=== PATIENT | female | born 1980 | race Two or more races ===

== ENCOUNTER 2021-12-01 11:16 | Emergency (ER) | payer OTHER, SELFPAY ==
[2021-12-01 11:49] VITALS: BP 157/90; PULSE 80; TEMP 37; O2SAT 100; BMI 25.7
[2021-12-01 12:17] LABS: COVID-19 Test Negative (Negative)
--- NOTE | 2021-12-01 12:35 | ED.URI ---
HPI - URI/Sore Throat General Chief Complaint: Upper Respiratory Symptoms <Rukhsana Earl NP - Last Filed: 12/01/21 13:21> Stated Complaint: Sinus infection <Rukhsana Earl NP - Last Filed: 12/01/21 13:21> Time Seen by Provider: 12/01/21 12:15 <Rukhsana Earl NP - Last Filed: 12/01/21 13:21> Source: screen cutter and trimmer <Rukhsana Earl NP - Last Filed: 12/01/21 13:21> Mode of arrival: ambulatory <HENOK Hallman Last Filed: 12/01/21 13:21> Limitations: language barrier <Rukhsana Earl NP - Last Filed: 12/01/21 13:21> History of Present Illness HPI Narrative: 41 Year old female with a history of asthma, hypertension here with complaints of sinus pressure, sinus pain, cough nasal congestion for 2 weeks. No fevers, chills, headache, neck pain/stiffnes, diff breathing or chest pain. Received moderna vaccine x2 for COVID. <HENOK Hallman Last Filed: 12/01/21 13:21> Related Data Home Medications: Previous Rx's Medication Instructions Recorded amoxicillin 875 mg-potassium 1 tab PO BID #14 tab 12/01/21 clavulanate 125 mg tablet (Augmentin) fluticasone propionate 50 2 spray INTRANASAL DAILY #16 g 12/01/21 mcg/actuation nasal spray,suspension <HENOK Hallman Last Filed: 12/01/21 13:21> Allergies/Adverse Reactions: Allergies Allergy/AdvReac Type Severity Reaction Status Date / Time cyclobenzaprine Allergy Unknown ITCHING Unverified 07/26/20 18:40 [From FLEXERIL] <HENOK Hallman Last Filed: 12/01/21 13:21> Review of Systems Review of Systems: Yes all other systems are reviewed and are negative <HENOK Hallman Last Filed: 12/01/21 13:21> Constitutional: Constitutional: Reports no additional constitutional complaints, Denies body ache(s), Denies chills, Denies fever(s), Denies headache(s) and Denies weakness <Rukhsana Earl NP - Last Filed: 12/01/21 13:21> Eyes: Eyes: Reports no additional eye complaints and Denies change in vision <Rukhsana Earl OBJECT ORIENTED PROGRAMMER - Last Filed: 12/01/21 13:21> ENT: Reports system reviewed and no additional complaints, except as documented, Denies dizziness, Denies headache(s), Reports nasal congestion, Denies nasal discharge, Denies neck pain, Reports sinus pain and Reports sinus pressure <Rukhsana Earl OBJECT ORIENTED PROGRAMMER - Last Filed: 12/01/21 13:21> Cardiovascular: Cardiovascular: Reports no additional cardiovascular complaints, Denies chest pain, Denies leg edema and Denies dyspnea <Rukhsana Earl OBJECT ORIENTED PROGRAMMER - Last Filed: 12/01/21 13:21> Respiratory: Respiratory: Reports no additional respiratory complaints, Reports cough and Denies dyspnea <Rukhsana Earl OBJECT ORIENTED PROGRAMMER - Last Filed: 12/01/21 13:21> Gastrointestinal: Gastrointestinal: Reports no additional gastrointestinal complaints, Denies abdominal pain, Denies diarrhea, Denies nausea and Denies vomiting <Rukhsana Earl OBJECT ORIENTED PROGRAMMER - Last Filed: 12/01/21 13:21> Genitourinary: Genitourinary: Reports no additional female genitourinary complaints and Denies urinary incontinence <Rukhsana Earl OBJECT ORIENTED PROGRAMMER - Last Filed: 12/01/21 13:21> Musculoskeletal: Musculoskeletal: Reports no additional musculoskeletal complaints, Denies back pain, Denies arthralgias, Denies joint swelling, Denies neck pain, Denies numbness and Denies tingling <Rukhsana Earl OBJECT ORIENTED PROGRAMMER - Last Filed: 12/01/21 13:21> Integumentary/Breasts: Skin/Breast: Reports system reviewed and no additional complaints, except as docu and Denies rash <Rukhsana Earl OBJECT ORIENTED PROGRAMMER - Last Filed: 12/01/21 13:21> Neurologic: Denies Abnormal speech present, Denies dizziness, Denies headache(s), Denies numbness, Denies tingling and Denies weakness <Rukhsana Earl OBJECT ORIENTED PROGRAMMER - Last Filed: 12/01/21 13:21> [facility] Past Medical History Attestation statement: The following information was validated with the patient. <Rukhsana Earl NP - Last Filed: 12/01/21 13:21> Source: old records reviewed and nursing notes reviewed <Rukhsana Earl NP - Last Filed: 12/01/21 13:21> Medical History: Medical History Asthma Hypertension <Rukhsana Earl NP - Last Filed: 12/01/21 13:21> Social History Social History: Social History Advance Directives: No Advance Directives Information Provided: No Patient : No <Rukhsana Earl NP - Last Filed: 12/01/21 13:21> Physical Exam Vital Signs: Vital Signs: Last Vital Signs Temp 98.6 F 12/01/21 11:49 Pulse 80 12/01/21 11:49 BP 157/90 H 12/01/21 11:49 Pulse Ox 100 12/01/21 11:49 BMI result Body Mass Index 25.7 <Rukhsana Earl NP - Last Filed: 12/01/21 13:21> Vital Signs: Last Vital Signs Temp 98.6 F 12/01/21 11:49 Pulse 80 12/01/21 11:49 BP 157/90 H 12/01/21 11:49 Pulse Ox 100 12/01/21 11:49 BMI result Body Mass Index 25.7 <Phu Orosco MD - Last Filed: 12/01/21 13:35> Const: General: cooperative, healthy appearing, comfortable and no acute distress <Rukhsana Earl NP - Last Filed: 12/01/21 13:21> Orientation/consciousness: patient oriented x3 <Rukhsana Earl NP - Last Filed: 12/01/21 13:21> Limitations: no limitations <Rukhsana Earl NP - Last Filed: 12/01/21 13:21> HENMT: Head: Yes normal to inspection <Rukhsana Earl NP - Last Filed: 12/01/21 13:21> Ears: hearing grossly normal bilaterally and TM's normal bilaterally <Rukhsana Earl NP - Last Filed: 12/01/21 13:21> General nose exam: Normal external nose present <Rukhsana Earl NP - Last Filed: 12/01/21 13:21> Face and sinus: Yes normal facial exam, Yes Facial tenderness on exam of face and sinuses (bilateral maxillar/frontal) and Yes other (bilateral nasal turbinate erythema ) <Rukhsana Earl OBJECT ORIENTED PROGRAMMER - Last Filed: 12/01/21 13:21> Mouth: Normal oral and palatal mucosa present <Rukhsana Earl NP - Last Filed: 12/01/21 13:21> Throat: Yes posterior oropharynx normal, Yes tonsils normal and Yes uvula midline <Rukhsana Earl NP - Last Filed: 12/01/21 13:21> Eyes: General: appearance normal, both eyes and all related structures <Rukhsana Earl NP - Last Filed: 12/01/21 13:21> Pupils: Equal, round and reactive pupils present <Rukhsana Earl OBJECT ORIENTED PROGRAMMER - Last Filed: 12/01/21 13:21> Neck: Neck: Yes normal visual inspection, Yes full ROM, Yes no lymphadenopathy and Yes no meningeal signs <Rukhsana Earl NP - Last Filed: 12/01/21 13:21> Chest: Chest palpation & inspection: normal inspection of the chest <Rukhsana Earl NP - Last Filed: 12/01/21 13:21> Resp: Effort & Inspection: normal respiratory effort <Rukhsana Earl NP - Last Filed: 12/01/21 13:21> Auscultation: clear to auscultation bilaterally <Rukhsana Earl NP - Last Filed: 12/01/21 13:21> Cardio: Rate: regular rate <Rukhsana Earl NP - Last Filed: 12/01/21 13:21> Rhythm: regular rhythm <Rukhsana Earl NP - Last Filed: 12/01/21 13:21> Peripheral pulses: Peripheral pulses 2+ throughout <Rukhsana Earl NP - Last Filed: 12/01/21 13:21> GI: Inspection: Yes normal to inspection <Rukhsana Earl NP - Last Filed: 12/01/21 13:21> Palpation (GI): Soft to palpation and nontender <Rukhsana Earl NP - Last Filed: 12/01/21 13:21> Auscultation: normal bowel sounds <Rukhsana Earl NP - Last Filed: 12/01/21 13:21> Back/Spine/Pelvis: Thoracic/Lumbar Spine: thoracic and lumbar spine normal to inspection <Rukhsana Earl NP - Last Filed: 12/01/21 13:21> Skin: General skin exam: no rashes or lesions noted <Rukhsana Earl NP - Last Filed: 12/01/21 13:21> Neuro: General: patient oriented x3, no meningeal signs, no focal motor deficits and normal sensation to monofilament <Rukhsana Earl NP - Last Filed: 12/01/21 13:21> Cranial nerves: Yes Equal, round and reactive pupils present <Rukhsana Earl NP - Last Filed: 12/01/21 13:21> Cognition (Neuro): normal cognition <Rukhsana Earl NP - Last Filed: 12/01/21 13:21> Speech: No Abnormal speech present <Rukhsana Earl NP - Last Filed: 12/01/21 13:21> Gait exam (Neuro): Normal gait present <Rukhsana Earl NP - Last Filed: 12/01/21 13:21> Motor exam (neuro): 5/5 motor strength present throughout <Rukhsana Earl NP - Last Filed: 12/01/21 13:21> Extrem: General: Yes normal to inspection <Rukhsana Earl NP - Last Filed: 12/01/21 13:21> Course Course Course Narrative: 41yo female here with complaints of sinus pressure/sinus pain, nasal congestion, cough x 2 weeks. Rapid COVID negative. Exam is consistent with sinusitis. Will treat with course of antibiotics. Reviewed worrisome signs and symptoms of when to return to the emergency department. Comfortable discharge home. <Rukhsana Earl NP - Last Filed: 12/01/21 13:21> MDM - URI/Sore Throat Medical Records Attestation: I reviewed the patient's medical records. <Rukhsana Earl NP - Last Filed: 12/01/21 13:21> Lab Data Attestation: I reviewed the patient's lab results. <Rukhsana Earl NP - Last Filed: 12/01/21 13:21> Labs: Lab Results 12/01/21 Range/Units 11:59 COVID-19 (NICHOLAS) Negative (Negative) COVID-19 Clin Com See Note <Rukhsana Earl NP - Last Filed: 12/01/21 13:21> Lab Results 12/01/21 Range/Units 11:59 COVID-19 (NICHOLAS) Negative (Negative) COVID-19 Clin Com See Note <Phu Orosco MD - Last Filed: 12/01/21 13:35> Discharge Plan Discharge Clinical Impression: Sinusitis <Rukhsana Earl NP - Last Filed: 12/01/21 13:21> Patient Disposition: Home, Self-Care <Rukhsana Earl NP - Last Filed: 12/01/21 13:21> Instructions: Sinusitis (ED) <Rukhsana Earl NP - Last Filed: 12/01/21 13:21> Additional Instructions: Continue motrin or tylenol for pain as needed <Rukhsana Earl NP - Last Filed: 12/01/21 13:21> Prescriptions: New amoxicillin-pot clavulanate [Augmentin] 875-125 mg tablet 1 tab PO BID Qty: 14 RF: 0 fluticasone propionate 50 mcg/actuation spray,suspension 2 spray intranasal DAILY Qty: 16 RF: 0 <Rukhsana Earl NP - Last Filed: 12/01/21 13:21> Referrals: Physician,Unknown J [Primary Care Provider] - 2 days <Rukhsana Earl NP - Last Filed: 12/01/21 13:21> Interventions: ED Discharge Assessment Last Done: 12/01/21 13:15 <Rukhsana Earl NP - Last Filed: 12/01/21 13:21> Discharge Date/Time: 12/01/21 13:17 <Rukhsana Earl NP - Last Filed: 12/01/21 13:21> Print Language: Serbian <Rukhsana Earl NP - Last Filed: 12/01/21 13:21>
== END 2021-12-01 13:17 | disposition home or self-care (01) ==
LOC: HO.ED 12:54
PROVIDERS: Emergency Provider Emergency Medicine
DX: J32.9 Chronic sinusitis, unspecified (principal); R05.9 Cough, unspecified; Z20.822 Contact with and (suspected) exposure to COVID-19
CPT/HCPCS: 87635; 99283

== ENCOUNTER 2022-03-06 14:16 | Outpatient (REF) | payer OTHER, SELFPAY ==
[2022-03-06 15:12] LABS: COVID-19 Test Negative (Negative); IDNOW Serial# 16C4AD1C
== END 2022-03-06 14:17 | disposition home or self-care (01) ==
LOC: HO.LAB 14:16
PROVIDERS: Visit Provider Internal Medicine
DX: Z20.822 Contact with and (suspected) exposure to COVID-19 (principal)
CPT/HCPCS: 87635; C9803

== ENCOUNTER 2022-03-23 10:09 | Emergency (ER) | payer OTHER, SELFPAY ==
--- NOTE | ~2022-03-23 | CT_ITS ---
EXAMINATION: CT ABDOMEN AND PELVIS WITHOUT CONTRAST CLINICAL INFORMATION: GI bleed. COMPARISON: None TECHNIQUE: Multidetector volumetric imaging was performed from the superior aspect of the liver through the pubic symphysis. Sagittal and coronal reformatted images were obtained on the technologist's workstation. This CT examination was performed using dose optimization techniques as appropriate, variously including the following: *Automated exposure control *Adjustment of mA and/or kV according to patient size (this includes techniques or standardized protocols for targeted exams where dose is matched to indication/reason for exam; i.e. extremities or head) *Use of iterative reconstruction technique DLP: 502 mGy-cm FINDINGS: LUNG BASES: The heart size is normal. Minimal bibasilar atelectasis seen. LIVER, GALLBLADDER, AND BILIARY TREE: The liver is normal in size, shape, and attenuation. No focal hepatic lesion or biliary ductal dilatation is present. There is a 7 mm calcification in the left hepatic lobe. The gallbladder has been surgically removed. PANCREAS: Unremarkable. SPLEEN: Unremarkable. ADRENAL GLANDS: Unremarkable. KIDNEYS AND URETERS: The kidneys are normal in size, shape, and attenuation. No hydronephrosis, hydroureter, or calculi seen. No perinephric stranding. BLADDER: Unremarkable. GASTROINTESTINAL TRACT: There is scattered stool and gas seen throughout the colon without any significant distention or mural thickening. Some scattered hypodensity is seen in the right colon which could be secondary to iodine tablets. No oral contrast was administered. The small bowel loops are normal caliber. Appendix is not visualized. ABDOMINAL WALL: There is a small umbilical hernia containing fat. LYMPH NODES: There are numerous small mesenteric lymph nodes seen on coronal image 30/5. The largest lymph nodes measure 7 mm and less in long axis. Also visualized are small retroperitoneal para-aortic lymph nodes and small bilateral inguinal lymph nodes. These are all nonspecific. VASCULAR: Unremarkable. PELVIC VISCERA: The uterus is anteverted and appears lumpy-bumpy suspicious for fibroid disease. There is no adnexal mass or free fluid. OSSEOUS STRUCTURES: Degenerative disc changes with vacuum disc phenomena and spondylosis L5-S1 disc level. CT/CT abdomen pelvis wo con IMPRESSION: No acute intra-abdominal process seen. Mild constipation. Slightly enlarged, bulky and lobulated uterus could be secondary to fibroid disease. Nonspecific lymph nodes, as described above, measuring 7 mm and less in the small bowel mesentery. Fleischner guidelines were followed.
[2022-03-23 10:32] VITALS: BP 149/80; PULSE 72; RESP 18; TEMP 36.1; O2SAT 98; BMI 25.7
[2022-03-23 12:09] LABS: MANUAL DIFF FLAG NO
[2022-03-23 12:10] LABS: Basophils Percent Auto 0.5 % (0-2); Eosinophils Absolute Auto 0.1 X10*3/uL (0.0-0.4); Eosinophils Percent Auto 1.8 % (0-4); Hematocrit 34.1 % (37.0-47.0); Hemoglobin 11.4 g/dl (12.0-16.0); Imm Gran Abs Auto 0.01 X10*3/uL (0.00-0.03); Imm Gran Pct Auto 0.2 % (0.0-0.4); Lymphocytes Absolute Auto 1.6 X10*3/uL (1.2-4.9); Mean Corpuscular HGB Conc 33.4 g/dl (31.0-35.0); Mean Corpuscular Hemoglobin 30.4 pg (27.0-33.0); Mean Corpuscular Volume 90.9 fL (80.0-98.0); Mean Platelet Volume 8.7 fL (9.4-12.3); Monocytes Absolute Auto 0.4 X10*3/uL (0.1-1.2); Monocytes Percent Auto 6.6 % (2-11); Neutrophils Absolute Auto 4.3 x10*3/uL (2.0-8.3); Neutrophils Percent Auto 65.9 % (45-73); Platelet Count 254 X10*3/uL (160-400); Red Blood Count 3.75 X10*6/uL (4.20-5.50); Red Cell Distribution Width 12.5 % (11.0-16.0); White Blood Count 6.5 X10*3/uL (4.8-10.8)
[2022-03-23 12:15] LABS: Prothrombin Time 10.9 SEC (9.9-13.0)
[2022-03-23 12:35] LABS: Alanine Aminotransferase 33 U/L (0-31); Albumin Level 3.9 g/dL (3.5-5.0); Alkaline Phosphatase 75 U/L (39-117); Anion Gap 10 (12-20); Aspartate Amino Transferase 23 U/L (5-31); Bilirubin Direct < 0.2 mg/dL (0.0-0.5); Bilirubin Total 0.3 mg/dL (0.0-1.0); Blood Urea Nitrogen 8 mg/dL (9-16); Calcium 8.9 mg/dL (8.4-10.2); Carbon Dioxide 25 mmol/L (22-29); Chloride 109 mmol/L (96-108); Creatinine Clr Calc Pharmacy 98.8; Estimated Glomerular Filt Rate > 60; Glucose Random 92 mg/dL (60-115); Lipase 36 U/L (8-78); Potassium 4.1 mmol/L (3.3-5.1); Sodium 140 mmol/L (135-145); Total Protein 7.2 g/dL (6.5-8.0)
[2022-03-23 14:45] VITALS: BP 139/88; PULSE 73; RESP 18; O2SAT 100
[2022-03-23 15:08] LABS: HCG Quantitative < 2 mIU/mL
[2022-03-23 15:56] LABS: OBS Int Ctl Valid YES; OBS1 POSITIVE (NEGATIVE)
--- NOTE | 2022-03-23 16:57 | ED.GIBLEED ---
HPI - GI Bleed General Chief complaint: GI Bleed Stated complaint: blood in stools Time Seen by Provider: 03/23/22 14:47 Source: patient and family Mode of arrival: ambulatory Limitations: language barrier ( Mozambican-speaking) History of Present Illness HPI Narrative: 41-year-old female with a past medical history of asthma and hypertension and gastritis presenting to the ED with complaints of 4 episodes of blood streak stool/gross hematochezia and blood on toilet paper since last night with lower abdominal cramping. She reports she has never had this in the past. She denies any headaches, dizziness, change in vision, nausea / vomiting, back or bloody emesis, chest pain or shortness of breath, dyspnea exertion, orthopnea, palpitations, paresthesias, radiation of the abdominal pain, recent falls or trauma, recent rectal intercourse, dysuria, hematuria or any other symptoms complaints or concerns at this time. MD complaint: blood on toilet paper, blood streaked stool and gross hematochezia Onset (ago): day(s) ( Since last night) Pain Consistency: intermittent Severity: mild Relieving factors: none Exacerbating factors: bowel movement Associated symptoms: abdominal pain Treatments Prior to Arrival: none Related Data Previous Rx's Medication Instructions Recorded amoxicillin 875 mg-potassium 1 tab PO BID #14 tab 12/01/21 clavulanate 125 mg tablet (Augmentin) fluticasone propionate 50 2 spray INTRANASAL DAILY #16 g 12/01/21 mcg/actuation nasal spray,suspension docusate sodium 100 mg capsule 100 mg PO BID PRN #14 cap 03/23/22 (Colace) polyethylene glycol 3350 17 17 g PO DAILY #238 g 03/23/22 gram/dose oral powder (Miralax) Allergies Allergy/AdvReac Type Severity Reaction Status Date / Time cyclobenzaprine Allergy Unknown ITCHING Unverified 07/26/20 18:40 [From FLEXERIL] Review of Systems Review of Systems: Constitutional : No Fever, No Chills, No Night Sweats, No Fatigue, No Malaise Cardiovascular : No Chest Pain, No SOB Respiratory : No Cough, No Sputum, No Wheezing, No Dyspnea Gastrointestinal : No Nausea, No Vomiting, No Diarrhea, + abdominal Pain, + Hematochezia, No Melena Genitourinary : No irregular bleeding, No Dysuria, No Urinary Frequency, No Hematuria,No Urinary Incontinence, No Urgency, No Flank Pain Musculoskeletal : No joint pain, No Myalgias, No Joint Swelling Skin : No Skin Lesions, No rash Neuro : No Weakness, No Numbness, No Paresthesias, No Loss of Consciousness, No Dizziness, No Headache Heme/Lymph: No Lymphadenopathy Endocrine : No Temperature Intolerance Yes all other systems are reviewed and are negative [facility] Past Medical History Attestation statement: The following information was validated with the patient. Medical History Asthma Hypertension Social History Social History Advance Directives: No Advance Directives Information Provided: No Physical Exam Vital Signs: Vital Signs: Last Vital Signs Temp 97 F 03/23/22 10:32 Pulse 73 03/23/22 14:45 Resp 18 03/23/22 14:45 BP 139/88 03/23/22 14:45 Pulse Ox 100 03/23/22 14:45 BMI result Body Mass Index 25.7 vital signs have been reviewed as normal and appeared to be correct. Blood pressure 149/80. Heart rate normal. Respiration rate normal. Temperature normal. Oxygen saturation normal. Appearance: Alert. Oriented X3. No acute distress. Head: Normal external exam. Normocephalic. Eyes: PERRLA. EOMI. Conjunctiva and sclera normal. Eyelids normal. ENT: Pharynx normal. Uvula midline. Moist mucous membranes. No trismus noted. No drooling noted. No muffled voice noted. Neck: Normal inspection. Neck supple. FROM. No adenopathy. No meningeal signs. CVS: Normal heart rate and rhythm. Heart sound normal. No murmurs noted. Pulses normal throughout. Respiratory: No respiratory distress. Painless inspiration. Breath sounds normal. No wheezes/rales/rhonchi noted. Chest nontender. No accessory muscle usage noted or decreased air movement noted. Abdomen: Soft and mild tenderness palpation to suprapubic/ lower abdomen. Nondistended. No guarding. No rigidity. Bowel sounds normal in all 4 quadrants. No distention noted. No organomegaly noted. No visible injury noted. No rebound tenderness. Negative Rovsing sign. Negative obturator's sign. Negative psoas sign. Negative Figueredo sign. Back: No CVA tenderness. Full range of motion noted. Skin: Skin warm and dry. Normal skin color. Normal skin turgor. No rashes/lesions/lacerations noted. Extremities: Extremities exhibit normal range of motion. Extremities nontender. Neuro: Oriented X 3. No motor deficit. No sensory deficit. Reflexes normal. Normal steady gait. CN's II-XII intact bilaterally? Course Course Course Narrative: 15:15pm - 41-year-old female with a past medical history of asthma and hypertension and gastritis presenting to the ED with complaints of 4 episodes of blood streak stool/gross hematochezia and blood on toilet paper since last night with lower abdominal cramping. labs obtain an H&H at 11.4/34.1. chloride 109. Anion gap 10. BUN 8. ALT 33. Otherwise all other labs are within normal limits. Stool occult positive for blood. Although on exam she is not actively bleeding rectally. Plan: Will obtain a CT scan abdomen pelvis with IV contrast and re-evaluate. Reevaluation(s) Reevaluation #1: - patient stool occult was positive although she is not actively bleeding on my exam. CT scan abdomen pelvis revealed chronic changes such as fibroids in the uterus and constipation otherwise no other acute processes. Therefore explained to the patient that her vital signs are stable her H&H is stable especially if she started bleeding last night there is no additional labs or imaging indicated at this time. Therefore she can follow-up as an outpatient for possible endoscope/colonoscopy with GI if they believe it is indicated and to follow-up with her PCP/ OBGYN for her fibroid disease and to return if any new or worsening symptoms. Patient understands agrees with this plan. Time: 18:38 [facility] - GI Bleed Medical Records Attestation: I reviewed the patient's medical records. Lab Data Attestation: I reviewed the patient's lab results. Result diagrams: 03/23/22 12:05 03/23/22 12:05 Labs: Lab Results 03/23/22 03/23/22 03/23/22 Range/Units 12:05 12:05 12:05 WBC 6.5 (4.8-10.8) X10*3/uL RBC 3.75 L (4.20-5.50) X10*6/uL Hgb 11.4 L (12.0-16.0) g/dl Hct 34.1 L (37.0-47.0) % MCV 90.9 (80.0-98.0) fL MCH 30.4 (27.0-33.0) pg MCHC 33.4 (31.0-35.0) g/dl RDW 12.5 (11.0-16.0) % Plt Count 254 (160-400) X10*3/uL MPV 8.7 L (9.4-12.3) fL Immature Gran % (Auto) 0.2 (0.0-0.4) % Neut % (Auto) 65.9 (45-73) % Lymph % (Auto) 25.0 (20-40) % [place] % (Auto) 6.6 (2-11) % Eos % (Auto) 1.8 (0-4) % Baso % (Auto) 0.5 (0-2) % Lymph # (Auto) 1.6 (1.2-4.9) X10*3/uL [place] # (Auto) 0.4 (0.1-1.2) X10*3/uL Eos # (Auto) 0.1 (0.0-0.4) X10*3/uL Baso # (Auto) 0.0 (0.0-0.2) X10*3/uL Abs Immat Gran (auto) 0.01 (0.00-0.03) X10*3/uL Absolute Neuts (auto) 4.3 (2.0-8.3) x10*3/uL Absolute Nucleated RBC 0.000 (0.0-0.012) X10*3/uL Nucleated RBC % (auto) 0.0 (0.0-0.2) /100WBC PT 10.9 (9.9-13.0) SEC INR 1.0 (0.9-1.1) Sodium 140 (135-145) mmol/L Potassium 4.1 (3.3-5.1) mmol/L Chloride 109 H (96-108) mmol/L Carbon Dioxide 25 (22-29) mmol/L Anion Gap 10 L (12-20) BUN 8 L (9-16) mg/dL Creatinine 0.69 (0.5-1.4) mg/dL Estim Creat Clear Calc 98.8 Estimated GFR > 60 Random Glucose 92 (60-115) mg/dL Calcium 8.9 (8.4-10.2) mg/dL Total Bilirubin 0.3 (0.0-1.0) mg/dL Direct Bilirubin < 0.2 (0.0-0.5) mg/dL AST 23 (5-31) U/L ALT 33 H (0-31) U/L Alkaline Phosphatase 75 (39-117) U/L Total Protein 7.2 (6.5-8.0) g/dL Albumin 3.9 (3.5-5.0) g/dL Lipase 36 (8-78) U/L Beta HCG, Quant < 2 mIU/mL Stool Occult Blood (NEGATIVE) 03/23/22 Range/Units 15:42 WBC (4.8-10.8) X10*3/uL RBC (4.20-5.50) X10*6/uL Hgb (12.0-16.0) g/dl Hct (37.0-47.0) % MCV (80.0-98.0) fL MCH (27.0-33.0) pg MCHC (31.0-35.0) g/dl RDW (11.0-16.0) % Plt Count (160-400) X10*3/uL MPV (9.4-12.3) fL Immature Gran % (Auto) (0.0-0.4) % Neut % (Auto) (45-73) % Lymph % (Auto) (20-40) % [place] % (Auto) (2-11) % Eos % (Auto) (0-4) % Baso % (Auto) (0-2) % Lymph # (Auto) (1.2-4.9) X10*3/uL [place] # (Auto) (0.1-1.2) X10*3/uL Eos # (Auto) (0.0-0.4) X10*3/uL Baso # (Auto) (0.0-0.2) X10*3/uL Abs Immat Gran (auto) (0.00-0.03) X10*3/uL Absolute Neuts (auto) (2.0-8.3) x10*3/uL Absolute Nucleated RBC (0.0-0.012) X10*3/uL Nucleated RBC % (auto) (0.0-0.2) /100WBC PT (9.9-13.0) SEC INR (0.9-1.1) Sodium (135-145) mmol/L Potassium (3.3-5.1) mmol/L Chloride (96-108) mmol/L Carbon Dioxide (22-29) mmol/L Anion Gap (12-20) BUN (9-16) mg/dL Creatinine (0.5-1.4) mg/dL Estim Creat Clear Calc Estimated GFR Random Glucose (60-115) mg/dL Calcium (8.4-10.2) mg/dL Total Bilirubin (0.0-1.0) mg/dL Direct Bilirubin (0.0-0.5) mg/dL AST (5-31) U/L ALT (0-31) U/L Alkaline Phosphatase (39-117) U/L Total Protein (6.5-8.0) g/dL Albumin (3.5-5.0) g/dL Lipase (8-78) U/L Beta HCG, Quant mIU/mL Stool Occult Blood POSITIVE (NEGATIVE) Imaging Data CT scan abdomen pelvis without IV contrast: Attestation: I personally reviewed and interpreted this imaging study as follows: Radiologist's impression: FINDINGS: LUNG BASES: The heart size is normal. Minimal bibasilar atelectasis seen.? LIVER, GALLBLADDER, AND BILIARY TREE: The liver is normal in size, shape, and attenuation. No focal hepatic lesion or biliary ductal dilatation is present. There is a 7 mm calcification in the left hepatic lobe. The gallbladder has been surgically removed.? PANCREAS: Unremarkable.? SPLEEN: Unremarkable.? ADRENAL GLANDS: Unremarkable.? KIDNEYS AND URETERS: The kidneys are normal in size, shape, and attenuation. No hydronephrosis, hydroureter, or calculi seen. No perinephric stranding.? BLADDER: Unremarkable.? GASTROINTESTINAL TRACT: There is scattered stool and gas seen throughout the colon without any significant distention or mural thickening. Some scattered hypodensity is seen in the right colon which could be secondary to iodine tablets. No oral contrast was administered. The small bowel loops are normal caliber. Appendix is not visualized.? ABDOMINAL WALL: There is a small umbilical hernia containing fat.? LYMPH NODES: There are numerous small mesenteric lymph nodes seen on coronal image 30/5. The largest lymph nodes measure 7 mm and less in long axis. Also visualized are small retroperitoneal para-aortic lymph nodes and small bilateral inguinal lymph nodes. These are all nonspecific. VASCULAR: Unremarkable. PELVIC VISCERA: The uterus is anteverted and appears lumpy-bumpy suspicious for fibroid disease. There is no adnexal mass or free fluid. ? OSSEOUS STRUCTURES: Degenerative disc changes with vacuum disc phenomena and spondylosis L5-S1 disc level.? CT/CT abdomen pelvis wo con IMPRESSION: No acute intra-abdominal process seen. ? Mild constipation. ? Slightly enlarged, bulky and lobulated uterus could be secondary to fibroid disease. ? Nonspecific lymph nodes, as described above, measuring 7 mm and less in the small bowel mesentery. ? Fleischner guidelines were followed. Discharge Plan Discharge Clinical Impression: Fecal occult blood test positive, Abdominal cramping, Constipation, Fibroid, uterine Patient Disposition: Home, Self-Care Instructions: Constipation (DC), Rectal Bleeding (ED), Abdominal Pain (ED) Prescriptions: New docusate sodium [Colace] 100 mg capsule 100 mg PO BID PRN (Reason: Constipation) Qty: 14 0RF polyethylene glycol 3350 [Miralax] 17 gram/dose powder 17 g PO DAILY Qty: 238 0RF No Action amoxicillin-pot clavulanate [Augmentin] 875-125 mg tablet 1 tab PO BID Qty: 14 0RF fluticasone propionate 50 mcg/actuation spray,suspension 2 spray intranasal DAILY Qty: 16 0RF Rx Instructions: administer into each nostril Referrals: Suresh Maxwell PA [Primary Care Provider] - 2 days Isidoro Green [Physician] - 1 week ( call to make a follow-up appointment within a week) Print Language: Mozambican
== END 2022-03-23 19:02 | disposition home or self-care (01) ==
PROVIDERS: Physician Assistant Medical; Emergency Provider Emergency Medicine; PCP Physician Assistant
DX: R19.5 Other fecal abnormalities (principal); R10.9 Unspecified abdominal pain; K59.00 Constipation, unspecified; D25.9 Leiomyoma of uterus, unspecified; I10 Essential (primary) hypertension; J45.909 Unspecified asthma, uncomplicated
CPT/HCPCS: 36415; 74176; 80048; 80076; 82272; 83690; 84702; 85025; 85610; 99283; 99284

== ENCOUNTER → 2022-04-15 13:03 | Outpatient (BNVA) | payer OTHER, SELFPAY | PROVIDERS: PCP Physician Assistant; Visit Provider Physician Assistant | DX: K62.5 Hemorrhage of anus and rectum (principal); K52.9 Noninfective gastroenteritis and colitis, unspecified; J45.909 Unspecified asthma, uncomplicated | CPT/HCPCS: 99202 ==

== ENCOUNTER 2022-04-21 09:07 | Outpatient (REF) | payer OTHER, SELFPAY ==
[2022-04-21 10:45] LABS: C Reactive Protein 0.56 mg/dL (< or = 0.50)
[2022-04-21 10:57] LABS: Erythrocyte Sedimentation Rate 5 MM/HR (0-20)
[2022-04-21 11:09] LABS: Thyroid Stimulating Hormone 0.82 uIU/mL (0.32-4.0)
[2022-04-25 15:33] LABS: Endomysial IgA Antibody Negative (Negative)
[2022-04-26 14:06] LABS: Transglutaminase IgA <1.0 U/mL
== END 2022-04-21 09:08 | disposition home or self-care (01) ==
LOC: HO.LAB 09:07
PROVIDERS: Visit Provider Physician Assistant
DX: K52.9 Noninfective gastroenteritis and colitis, unspecified (principal); K62.5 Hemorrhage of anus and rectum; K59.09 Other constipation
CPT/HCPCS: 36415; 84443; 85652; 86140; 86231; 86364

== ENCOUNTER 2022-04-22 10:42 | Outpatient (REF) | payer OTHER, SELFPAY ==
[2022-04-22 12:06] LABS: CDiff Gene PCR POSITIVE (Negative)
[2022-04-22 14:27] LABS: CDIFF Internal ctrl Dots and bkg OK (V); CDiff Toxin Positive (Negative)
[2022-04-26 22:36] LABS: Calprotectin, Fecal 532 mcg/g
[2022-05-04 13:56] LABS: Fecal Fat Qualitative NORMAL (NORMAL)
== END 2022-04-22 10:43 | disposition home or self-care (01) ==
LOC: HO.LNP 10:42
PROVIDERS: Visit Provider Physician Assistant
DX: K52.9 Noninfective gastroenteritis and colitis, unspecified (principal); A04.8 Other specified bacterial intestinal infections; K62.5 Hemorrhage of anus and rectum
CPT/HCPCS: 82705; 83993; 87324; 87329; 87338; 87493

== ENCOUNTER → 2022-04-29 12:54 | Outpatient (BNVA) | payer OTHER, SELFPAY | PROVIDERS: PCP Physician Assistant; Referring Provider Physician Assistant; Visit Provider Physician Assistant | DX: A04.72 Enterocolitis due to Clostridium difficile, not specified as recurrent (principal) | CPT/HCPCS: 99212 ==

== ENCOUNTER 2022-10-07 09:40 | Day surgery (SDC) | payer OTHER, SELFPAY ==
--- NOTE | 2022-10-06 10:16 | P.CONAN_ITS ---
Documented by User: Mariah Roland NP 10/06/22 10:17 HPI - Anesthesia Eval Consult details Narrative: 42yo F for Colonoscopy PMFSH Active Problems Active Problems: All Active Problems (Updated 04/22/22 @ 14:47 by Chey Arevalo PA-C) C. difficile diarrhea (Acute) Chronic diarrhea (Acute) Rectal bleeding (Acute) Hypertension (Acute) Asthma (Acute) Past Medical History Medical History (Updated 04/22/22 @ 14:47 by Chey Arevalo PA-C) Asthma Hypertension Family History Family History Father Depression Drug abuse Suicide Mother Anxiety Depression Sister Hemorrhoid Paternal Grandmother HTN (hypertension) Paternal Grandmother HTN (hypertension) Surgical History Surgical History Hx of section Hx of cholecystectomy Social History Social History Household Members: Family Alcohol intake: never Patient Tobacco Use Status: Never used Tobacco Second Hand Smoke Exposure: No Use of substances other than those prescribed or required for medical reasons: No Are you DNR?: No Advance Directives: No Advance Directives Information Provided: Yes Advance Directives on File: No Meds Allergies Allergy/AdvReac Type Severity Reaction Status Date / Time cyclobenzaprine Allergy Mild ITCHING Verified 10/07/22 12:16 [From FLEXERIL] Exam Exam Date and Time: October 06, 2022 1016 Pertinent Lab Results Pertinent Lab Results: Laboratory Tests 03/23/22 03/23/22 12:05 12:05 WBC 6.5 Hgb 11.4 L Hct 34.1 L Plt Count 254 Sodium 140 Potassium 4.1 Chloride 109 H Carbon Dioxide 25 BUN 8 L Creatinine 0.69 Assessment and Plan Assessment Anesthesia Assessment: Chart Reviewed Documented by User: Livan Galloway MD 10/07/22 17:17 [facility] Past Medical History Medical History (Updated 04/22/22 @ 14:47 by Chey Arevalo PA-C) Asthma Hypertension Family History Family History Father Depression Drug abuse Suicide Mother Anxiety Depression Sister Hemorrhoid Paternal Grandmother HTN (hypertension) Paternal Grandmother HTN (hypertension) Family history of problems with anesthesia: No Surgical History Surgical History Hx of section Hx of cholecystectomy History of Problems with Anesthesia: No Social History Social History Household Members: Family Alcohol intake: never Patient Tobacco Use Status: Never used Tobacco Second Hand Smoke Exposure: No Use of substances other than those prescribed or required for medical reasons: No Are you DNR?: No Advance Directives: No Advance Directives Information Provided: Yes Advance Directives on File: No Meds Allergies Allergy/AdvReac Type Severity Reaction Status Date / Time cyclobenzaprine Allergy Mild ITCHING Verified 10/07/22 12:16 [From FLEXERIL] Exam Airway Mallampati Class: III TM Dist: >3cm Neck ROM: Full Loose/Missing/Broken Teeth: Yes (Braces ) Heart: S1,S2 Lungs: b/l breath sounds Assessment and Plan Assessment Anesthesia Assessment: Anesthesia Plan Discussed Final Anesthetic Review Family History of Problems with Anesthesia: No History of Problems with Anesthesia: No NPO: Yes ASA Class: II Final Preanesthetic Review: Meds/Allgs Chart Reviewed, Consent Obtained/Reviewed and Anes Risks/Benef Reviewed Patient Risk: Intermediate Procedure Risk: Intermediate Anesthetic Plan Anesthetic Plan: MAC: Disposition: Standard PACU
[2022-10-07 10:52] VITALS: BMI 28.0
[2022-10-07 10:57] VITALS: BP 126/72; PULSE 65; RESP 16; TEMP 36.4; O2SAT 100
[2022-10-07] MEDS: Lactated Ringers 1,000 ML 100 ML IVCONT (11:02)
[2022-10-07 11:09] LABS: UPreg QC Valid YES; Urine Pregnancy NEGATIVE (NEGATIVE)
--- NOTE | 2022-10-07 12:05 | MHC.SHP ---
Pre-Procedural Eval Section A Date of Service: 10/07/22 The patient is an INPATIENT: No Changes since office visit: No Cold of Flu in the past 2 weeks, No New Medical Problems, No Changes in Medication and No Patient answered all questions The History & Physical has been completed within 30 days and I have reviewed it.: Yes Section B Chief Complaint: Other fecal abnormalities Allergies: Allergies Allergy/AdvReac Type Severity Reaction Status Date / Time cyclobenzaprine Allergy Unknown ITCHING Verified 04/29/22 13:11 [From FLEXERIL] Plan I have reviewed the history and physical and performed a pertinent physical examination on my patient. No changes have occurred unless specified.
--- NOTE | 2022-10-07 12:43 | P.BOP_ITS ---
Brief Operative Note Date of Service: 10/07/22 Pre-op diagnosis: heme pos stool Post-op diagnosis: same Procedure: colonoscopy Surgeon: Pino Adames Anesthesia: MAC Was an Head [employer] Custodian used for this Procedure?: No Estimated blood loss (mL): 2 Pathology: other Condition: stable Disposition: PACU
[2022-10-07 12:46] VITALS: BP 86/47; PULSE 77; RESP 16; TEMP 36.3; O2SAT 99
[2022-10-07 13:01] VITALS: BP 123/44; PULSE 78; RESP 16; TEMP 36.3; O2SAT 100
--- NOTE | 2022-10-07 23:33 | OP_ITS ---
SURGEON: Pino Adames MD INDICATIONS: Hemoccult-positive stools. PREOPERATIVE DIAGNOSIS: POSTOPERATIVE DIAGNOSIS: PROCEDURE PERFORMED: Colonoscopy to the terminal ileum with biopsy. ESTIMATED BLOOD LOSS: COMPLICATIONS: ANESTHESIA: Monitored anesthesia care. ASSISTANTS: SPECIMENS: DESCRIPTION OF PROCEDURE: Date: 10/07/22 History and physical performed. The risks and benefits of the procedure were explained to the patient. Informed consent was obtained. The patient was placed in the left lateral decubitus position. A digital rectal exam was performed and was found to be normal. The Olympus pediatric video colonoscope was introduced into the rectum and advanced to the cecum without difficulty. The cecum was identified by transillumination, palpation, and identification of ileocecal valve. Examination was performed. The scope was removed. She tolerated the procedure well and was taken to recovery in stable condition. FINDINGS: The terminal ileum was evaluated and appeared normal. This was biopsied. The visualized colonic mucosa was normal. There was a large amount of liquid stool left, which limited the sensitivity examination for detection of small polyps. This was washed and suctioned as best possible. No polyps were identified. There was no evidence of colitis. Retroflexed examination showed some small internal hemorrhoids. IMPRESSION: Normal colonoscopy. RECOMMENDATION: 1. Follow up the biopsy results, which were obtained from the sigmoid and the terminal ileum. 2. Repeat colonoscopy is recommended in 10 years for average risk individuals for colon cancer screening. MD CHRISTO Mcclellan/MILIND / [id number] MTDD
== END 2022-10-07 13:37 | disposition home or self-care (01) ==
PROVIDERS: Nurse Practitioner; PCP Physician Assistant; Visit Provider Internal Medicine Gastroenterology
PROC: 0DJD8ZZ Inspection of Lower Intestinal Tract, Via Natural or Artificial Opening Endoscopic (ICD-10-PCS; CPT 45378; principal; 2022-10-07 11:00)
DX: R19.5 Other fecal abnormalities (principal); K62.5 Hemorrhage of anus and rectum; I10 Essential (primary) hypertension; J45.909 Unspecified asthma, uncomplicated
CPT/HCPCS: 45380; 81025; 88305

== ENCOUNTER 2025-06-15 11:14 | Outpatient (AMB) | payer OTHER, SELFPAY ==
--- NOTE | 2025-06-15 11:30 | MHC.OFFVIS ---
Intake Visit Reasons: 3M/ Migrane, anxiety Allergies cyclobenzaprine (From FLEXERIL) Allergy (Mild, Verified 06/15/25 11:34) ITCHING Medication List - Last Reconciled 06/15/25 by Karina Eaton CNP bisacodyl (Dulcolax (bisacodyl)) 10 mg (2 x 5 mg) PO ONCE 1 day docusate sodium (Colace) 100 mg PO BID PRN fluticasone propionate 50 mcg/actuation 2 sprays intranasal DAILY hydrocortisone-pramoxine 1-1 % (Proctofoam HC) 1 appl ND BEDTIME PRN methylcellulose (laxative) (Citrucel) 500 mg PO TID nortriptyline 20 mg PO DAILY ondansetron 4 mg PO DAILY polyethylene glycol 3350 (Miralax) 17 grams PO DAILY polyethylene glycol 3350 (Miralax) 238 grams PO ONCE 1 day sertraline 25 mg PO DAILY sumatriptan succinate 50 mg PO PRN vancomycin 125 mg PO QID 10 days HPI Comments Details: 45-year-old woman with FABIAN using CPAP most nights and headaches for many years. She was doing so-so. Headaches were happening a few times a week, but not as much as before. Sumatriptan as needed helped. Sleep was okay. Sertraline was helping with mood.?She was working with a therapist and had an appointment with psychiatrist later this month. [facility] Medical History (Updated 06/15/25 @ 11:32 by Karina Eaton CNP) Anxiety Migraine without aura Hypertension Asthma Surgical History Hx of section Hx of cholecystectomy Family History Father Depression Drug abuse Suicide Mother Anxiety Depression Sister Hemorrhoid Paternal Grandmother HTN (hypertension) Paternal Grandmother HTN (hypertension) Social History Household Members: Family Alcohol intake: never Patient Tobacco Use Status: Never used Tobacco Second Hand Smoke Exposure: No Review of Systems Const Denies chills, Denies daytime sleepiness, Reports difficulty sleeping, Denies fatigue, Denies fever(s), Denies frequent falls, Reports headache(s), Denies increased appetite, Denies poor appetite, Denies snoring, Denies weakness, Denies weight gain and Denies weight loss Eyes Denies loss of vision ENT Denies vertigo, Denies dizziness and Reports headache(s) Card Denies chest pain at rest, Denies chest pain with activity, Denies syncope, Denies leg edema and Denies palpitations Resp Denies snoring GI Denies constipation, Denies heartburn, Denies diarrhea and Denies nausea Denies urinary frequency, Denies urinary incontinence and Denies urinary urgency Musc Denies abnormal gait, Reports numbness and Reports tingling Skin/Breast Denies dry skin and Denies rash Neuro Denies abnormal gait, Denies vertigo, Denies dizziness, Denies syncope, Denies frequent falls, Reports headache(s), Denies lack of coordination, Denies loss of vision, Denies memory loss, Reports numbness, Denies restless legs, Denies seizure-like activity, Reports tingling, Denies paresthesias, Denies tremor(s) and Denies weakness Psych Reports anxiety, Denies depression, Denies auditory hallucinations, Denies memory loss, Denies visual hallucinations and Denies suicidal ideation Endo Denies fatigue and Denies palpitations Physical Exam Const Other: General Appearance:? normal, in no acute distress. Skin:? no rashes, no significant birthmarks. Heart:? S1, S2 normal, no murmurs. Lungs:? clear anteriorly and posteriorly. Extremities:? no edema. Psych:? alert, oriented, cognitive function intact, cooperative with exam. Neuro Other: Mental Status:?Normal attention, orientation, memory and affect.? Cranial Nerves:?Pupils are equal, round and reactive to light. External occular muscles are intact. Visual johnson are full. Face is symmetrical. Facial sensations are normal. Tongue is midline. Palate elevates symmetrically. Shoulder shrugging is normal. Hearing to bedside conversation is normal. Motor Examination:?Normal muscle tone, bulk and strength,?Deep tendon reflexes are 2+,?Plantars are flexor.? Sensory Exam:?....? Coordination:?No ataxia,?no titubation.? Gait Exam: Within normal limits. Cerebellar Signs:?[id number] is okay. Extrapyramidal System:?No tremor, rigidity with normal facial expressions.? Pronator Drift:?Not present.? Involuntary Movements:?No tremors seen.? Speech:?Normal.? Assessment & Plan Assessment & Plan (1) Migraine without aura: Code(s): G43.009 - Migraine without aura, not intractable, without status migrainosus Category: Medical Qualifiers: Status migrainosus presence: without status migrainosus Intractability: not intractable Qualified Code(s): G43.009 - Migraine without aura, not intractable, without status migrainosus Plan: Continue nortriptyline 10mg 2 capsules at bedtime Continue sumatriptan 50mg 1 tablet as needed for migraine Continue ondansetron 4mg 1 tablet as needed for nausea/vomiting (2) Anxiety: Code(s): F41.9 - Anxiety disorder, unspecified Category: Medical Plan: Continue sertraline 25mg 1 tablet daily Plan Meds tried: topiramate, sumatriptan, propranalol, verapamil SR 120mg, depakote, amitriptyline Medications: New sumatriptan succinate take 1 tab at onset of headache; if no relief may repeat 1 tab after at least 2 hrs; PO 10 tabs 5RF 30 days sertraline 25 mg PO DAILY 90 tabs 1RF 90 days nortriptyline 20 mg (2 x 10 mg) PO DAILY 180 caps 1RF 90 days Discontinued sumatriptan succinate Discontinued Reason: Order 50 mg PO PRN ondansetron Discontinued Reason: Order 4 mg PO DAILY Coding Level of Care Code Est Pt Level 4 (34741) Diagnoses Migraine without aura and without status migrainosus, not intractable G43.009 Status migrainosus presence: without status migrainosus Intractability: not intractable Anxiety F41.9
--- OUTSIDE RECORDS SUMMARY | 2025-06-15 11:55 | XMS_ITS | Patient Health Record ---
Author Organization [facility] Address [address] [place] [address] Care Team Providers Care Table Tender Sludge Name Role Phone Pino Adames Primary Care Provider Pino Raya Jr Unavailable [phone] Allergies Allergen (clinical drug ingredient) Drug/Non Drug Allergy documented on EMR Reaction Allergy Type Onset Date Status Flexeril Unknown Drug Allergy Active Reason For Referral No Information Medications Medication SIG (Take, Route, Frequency, Duration) Notes Start Date End Date Status MiraLax (colon prep) 17 GM/SCOOP mixed with Gatorade or Crystal Light Orally begin at 5:00 p.m. the day before the procedure for 1 day 09/15/2022 Active Immunizations Vaccine Route Administration Date Status Comme nts Influenza Unknown 09/15/2022 Refused Social History Tobacco Use: Social History Observation Description Date Details (start date - stop date) Never Smoker NA - NA Tobacco Use/Smoking Question Answer Notes Patient is a nonsmoker Alcohol Screen Question Answer Notes Did you have a drink containing alcohol in the p ast year? No Points 0 Interpretation Negative Problems Problem Type SNOMED Code ICD Code Onset Dates Problem Status W/U Status Risk Notes Problem [id number] Abnormal findings in stool (R19.5) Active confirmed Plan Of Treatment Future Test Test Name Order Date COLONOSCOPY 09/15/2022 Insurance Providers Payer Name Payer Address Payer Phone Subscriber Number Group Number Insured Name Patient Relationship to Insured Coverage Start Date Coverage End Date [facility] [address] [place] [phone] [id number] MILAN FOWLER Self - patient is the insured Medical (General) History Medical History History ICD Code high blood pressure Asthma Sinus infections Surgical History Surgery Date(Month/Year)
--- OUTSIDE RECORDS SUMMARY | 2025-06-15 11:55 | XMS_ITS | Clinical Summary ---
Author Organization [facility] Address [id number] [place] [id number] Care Team Providers Care Strawhat Sizer Name Role Phone Suresh Maxwell Primary Care Provider Social History Tobacco Use Types Packs/Day Years Used Date Smoking Tobacco: Never Assessed Comments Unknown Sex and Gender Information Value Date Recorded Sex Assigned at Not on file Legal Sex Female 12:38 PM EST Gender Identity Not on file Sexual Orientation Not on file Last Filed Vital Signs Vital Sign Reading Time Taken Comments Blood Pressure 130/81 01/27/2022 9:05 AM EDT Pulse - - Temperature - - Respiratory Rate - - Oxygen Saturation - - Inhaled Oxygen Concentration - - Weight 70.8 kg (156 lb) 01/27/2022 9:05 AM EDT Height 160 cm (5' 3 ) 01/27/2022 9:05 AM EDT Body Mass Index 27.63 01/27/2022 9:05 AM EDT Plan of Treatment Health Maintenance Due Date Last Done Comments Breast Cancer Screening 1981 DTaP,Tdap,and Td Vaccines (1 - Tdap) 2000 Hepatitis B Vaccines (1 of 3 - 19+ 3-dose series) 2000 Cervical Cancer Screening: P ap Smear 2002 COVID-19 Vaccine ( - 2023-2 5 season) 2024 Depression Screening 11/09/2024 Influenza Vaccine (#1) 2025 HIB Vaccines Aged Out No longer eligi ble based on patient's age to complete this topic HPV Vaccines Aged Out No longer eligi ble based on patient's age to complete this topic Hepatitis A Vaccines Aged Out No long er eligible based on patient's age to complete this topic IPV Vaccines Aged Out No longer eligi ble based on patient's age to complete this topic MMR Vaccines Aged Out No longer eligi ble based on patient's age to complete this topic Meningococcal ACWY Vaccine Aged Out N o longer eligible based on patient's age to complete this topic Meningococcal B Vaccine Aged Out No l onger eligible based on patient's age to complete this topic Pneumococcal Vaccine: Pediat rics (0 to 5 Years) and At-Risk Patients (6 to 49 Years) Aged Out No longer eligible b ased on patient's age to complete this topic RSV Immunization Patients Un kayce 20 months Aged Out No longer eligible b ased on patient's age to complete this topic Varicella Vaccines Aged Out No longer eligible based on patient's age to complete this topic Care Teams Strawhat Sizer Relationship Specialty Start Date End Date Suresh Maxwell PA [address] [place] [phone] PCP - General Internal Medicine 12/24/21
--- OUTSIDE RECORDS SUMMARY | 2025-06-15 11:56 | XMS_ITS | Patient Health Record ---
Author Organization [facility] Address [address], [place] [id number] Care Team Providers Care Trim Setter Name Role Phone Chele - NOT USE [facility] Provider Unavailable Maggie Stan Unavailable [phone] Reason For Referral No Information Plan Of Treatment No Information Insurance Providers Payer Name Payer Address Payer Phone Subscriber Number Group Number Insured Name Patient Relationship to Insured Coverage Start Date Coverage End Date [place] [address] [place] [address] [id number] Nita Bennett Self - patient is the insured 3 3
--- OUTSIDE RECORDS SUMMARY | 2025-06-15 11:56 | XMS_ITS | Clinical Summary ---
Author Organization [facility] Address [address] [place] [address] Care Team Providers Care [employer] Research Associate Name Role Phone Unavailable Primary Care Provider Unavailabl e Source Comments PLEASE NOTE, if this patient is a minor, it may be UNLAWFUL to discuss sensitive information that is contained in these records (such as FAMILY PLANNING, MENTAL HEALTH or SUBSTANCE ABUSE) with the minor patient's parent or other person without the patient's specific authorization.[facility] Allergies Active Allergy Reactions Criticality Noted Date Comments Cyclobenzaprine Itching High 11/09/2007 Medications metroNIDAZOLE (METROGEL) 0.75 % gelIndications:Ro sacea Apply topically 2 (two) times daily 45 g 1 1 Active albuterol sulfate 90 mcg/actuation inhalerIndication s:Mild intermittent asthma with acute exacerbation (HHS-HCC) INHALE 2 PUFFS INTO THE LUNGS EVERY 6 (SIX) HOURS NEEDED FOR SHORTNESS OF BREATH OR WHEEZING 8.5 Each 1 1 Active ibuprofen 800 mg tabletIndications :COVID-19 TAKE 1 TABLET BY MOUTH 3 (THREE) TIMES DAILY NEEDED FOR FEVER, HEADACHES OR PAIN 30 Tablet 2 Active albuterol HFA 90 mcg/actuation inhalerIndication s:Allergic rhinitis, unspecified seasonality, unspecified trigger Inhale 2 Puffs into the lungs every 4 (four) hours as needed for shortness of breath or wheezing 18 g 1 2 Active fexofenadine (HUSEYIN) 60 mg tabletIndications :Allergic rhinitis, unspecified seasonality, unspecified trigger TAKE 1 TABLET BY MOUTH 2 (TWO) TIMES DAILY NEEDED FOR ALLERGIES 60 Tablet 1 2 Active oxymetazoline (AFRIN SINUS, OXYMETAZOLINE,) 0.05 % nasal sprayIndications: Viral upper respiratory tract infection Place 2 Sprays into the nostril(s) 2 (two) times daily 15 mL 2 Active benzonatate (TESSALON) 200 mg capsuleIndication s:Viral upper respiratory tract infection Take 1 Capsule by mouth 3 (three) times daily as needed for cough 15 Capsule 2 Active econazole 1 % creamIndications: Flexural eczema Apply topically once daily 85 g 2 3 Active fexofenadine (HUSEYIN) 60 mg tabletIndications :Nasal congestion,Recurr ent sinusitis Take 1 Tablet by mouth 2 (two) times daily as needed for allergies 90 Tablet 1 3 Active fluticasone (FLONASE) 50 mcg/actuation nasal spray SPRAY SPRAY 1 SPRAY INTO EACH NOSTRIL EVERY DAY FOR 30 DAYS 3 Active predniSONE (DELTASONE) 20 mg tabletIndications :Chronic right-sided low back pain with right-sided sciatica Take 1 Tablet by mouth once daily 5 Tablet 3 Active oxyCODONE (ROXICODONE) 5 mg tabletIndications :Chronic right-sided low back pain with right-sided sciatica Take 1 Tablet by mouth every 6 (six) hours as needed for pain 20 Tablet 3 Active SUMAtriptan succinate (IMITREX) 50 mg tablet TAKE 1 TABLET BY MOUTH ONCE NEEDED FOR MIGRAINE FOR UP TO 1 DOSE. 10 Tablet 1 3 Active Active Problems Problem Noted Date Diagnosed Date Migraine-cluster headache syndrome 06/25/2022 Allergic rhinitis 06/25/2022 LGSIL of cervix of undetermined significance Microscopic hematuria 03/26/2022 Sacroiliac joint dysfunction of both sides 03/26 Muscle pain 03/26/2022 Mild intermittent asthma with status asthmaticus ([facility]) 04/15/2016 Hypertension 04/15/2016 Gastroesophageal reflux disease 04/15/2016 Bilateral low back pain 05/30/2013 Overview (03/22/2017): - seen by [facility] management in 2016, plan: injection? - [facility] to lumbar 12/26/ 2016: Normal examination of the lumbosacral spine Sprain of shoulder, right 05/30/2013 Resolved Problems Problem Noted Date Diagnosed Date Resolved Date ASTHMA MILD PERSISTENT 05/30/201304/15 Immunizations Immunization Administration Dates Next Due Hep B,adult,adjuvanted (HEPLISAV) 01/08/2023, INFLUENZA, SEASONAL, INJECTABLE 09/17/2016 Moderna COVID-19 Vaccine, re d cap blue label, 12+ Primary Series 01/17/2022,04/04/2021,03/07/2021 PNEUMOCOCCAL POLYSACCHARIDE PPV23 (Pneumovax 23) 06/25/2022 PPD 04/01/2022,01/08/2021 TDAP 04/15/2016 Td (adult),2 Lf tetanus toxo id (TDVAX), preservative free 02/06/2022 Family History Medical History Relation Name Comments Depression Father No Known Problems Mother No Known Problems Sister Relation Name Status Comments Father suicide Mother Alive Sister Alive Social History Tobacco Use Types Packs/Day Years Used Date Smoking Tobacco: Never Smokeless Tobacco: Never Tobacco Cessation:Counseling Given: Not Answered Alcohol Use Standard Drinks/Week Comments No 0 (1 standard drink = 0.6 oz pur e alcohol) Social Connections Answer Date Recorded Connectedness 0 01/08/2023 Financial Resource Strain Answer Date R ecorded Financial Resource Strain 0 2022 Stress Answer Date Recorded Stress 0 01/08/2023 Physical Activity Answer Date Recorded Physical Activity 0 07/02/2019 Food Insecurity Answer Date Recorded Food 0 01/08/2023 Transportation Needs Answer Date Record ed Transportation 0 01/08/2023 Housing Stability Answer Date Recorded Housing 0 01/08/2023 Safety and Environment Answer Date Danie rded Safety 0 01/08/2023 Utilities Answer Date Recorded Utilities 0 01/08/2023 Employment Answer Date Recorded Employment 0 07/02/2019 Comments No Sex and Gender Information Value Date Recorded Sex Assigned at Female 12/15/2019 8:08 AM PST Legal Sex Female 11:36 AM PDT Gender Identity Female 12/15/2019 8:08 AM PST Sexual Orientation Straight 08/26/2017 7: 42 AM PDT Last Filed Vital Signs Vital Sign Reading Time Taken Comments Blood Pressure 114/84 04/23/2023 1:04 PM EDT Pulse 72 04/23/2023 1:04 PM EDT Temperature 37.1 C (98.7 F) 04/23/2023 1:04 PM EDT Respiratory Rate 17 04/23/2023 1:04 PM EDT Oxygen Saturation 96% 01/08/2023 8:52 AM EST Inhaled Oxygen Concentration - - Weight 73.5 kg (162 lb) 04/23/2023 1:04 PM EDT Height 157.5 cm (5' 2 ) 01/08/2023 8:52 AM EST Body Mass Index 29.63 01/08/2023 8:52 AM EST Plan of Treatment Health Maintenance Due Date Last Done Comments Anxiety Screening 1981 HPV Screening 1981 Tobacco Screening 1981 Breast Cancer Screening (Mammogram) 2021 Cervical Cancer Screening 10/07/2022 Pap + HPV 10/07/2022 10/07/2017 Pap Smear 10/07/2022 10/07/2017, 04/15/2016 CT Colonography 10/20/2022 Colonoscopy 10/20/2022 Colorectal Cancer Screening 10/20/2022 FIT/gFOBT 10/20/2022 Fecal DNA 10/20/2022 Flexible Sigmoidoscopy 10/20/2022 Annual Wellness (Adult): Indicated (All Coverage) 01/09/2024 01/08/2023, 04/28/2019, 08/26/2017 Relationship Safety Screening/Counseling 01/09/2024 01/08/2023, 03/26/2022, 01/28/2021, Additional history exists Hypertension Screening (#1) 04/22/2024 [id number] ( season) 2024 01/17/2022, 04/04/2021, 03/07/2021 Alcohol and Drug Screen 11/09/2024 01/09/20 23, 12/09/2021, 01/28/2021, Additional history exists Depression Annual Screen 11/09/2024 04/28/2019, 05/2016 Diabetes Screening 06/25/2025 06/25/2022, 0 06/25/2022, 01/31/2021, Additional history exists Imm-Influenza (#1) 2025 09/17/2016 Lipid Screening 06/25/2027 06/25/2022, 01/08, 12/03/2020, Additional history exists Imm-DTaP/Tdap/Td (3 - Td or Tdap) 02/07/2032 022, 04/15/2016 HIV Screening Completed 03/31/2019 Hepatitis C Screening Completed 01/31/2021 Imm-Hepatitis B Completed 01/08/2023, 11/27/2022 Cervical Ablation/Cold-Knife Conization Discontinued Cervical Cryotherapy Discontinued Colposcopy Discontinued Endometrial Biopsy Discontinued Excision/Leep Discontinued HPV Genotyping Discontinued Vaginal Pap Discontinued Vulvoscopy Discontinued Procedures Procedure Name Priority Date/Time Associated Diagnosis Comments COMPREHENSIVE METABOLIC PANEL Routine 06/25/2022 11:30 AM EDT Routine adult health maintenance LIPID PANEL Routine 06/25/2022 11:30 AM EDT HEPATITIS C ANTIBODY Routine 01/31/2021 9:02 AM EDT Routine general medical examination at a health care facility ANTIBODY HIV-1&HIV-2 SINGLE RESULT Routine 03/31/2019 9:56 AM EDT Physical exam from Last 3 Months or Most Recently Relevant to Health Maintenance Results * (ABNORMAL) LIPID PANEL (06/25/2022 11:30 AM EDT) Pathologist [facility] CHOLESTEROL, TOTAL 218(H) <200 mg/dL [facility] HDL CHOLESTEROL 42(L) > OR = 50 mg/dL [employer] [facility] TRIGLYCERIDES 186(H) <150 mg/dL [facility] [facility] LDL-CHOLESTEROL 144(H) 99 mg/dL (calc) [employer] [facility] Comment: Reference range: <100 Desirable range <100 mg/dL for primary prevention; <70 mg/dL for patients with CHD or diabetic patients with > or = 2 CHD risk factors. LDL-C is now calculated using the Rosio calculation, which is a validated novel method providing better accuracy than the Friedewald equation in the estimation of LDL-C. Marcos SHAFFER et al. CARLOS. 2013;310(19): 3122-0967 (http://education.TapFit/faq/VDM699) CHOL/HDLC RATIO 5.2(H) <5.0 (calc) [facility] NON-HDL CHOLESTEROL 176(H) <130 mg/dL (calc) [facility] Comment: For patients with diabetes plus 1 major ASCVD risk factor, treating to a non-HDL-C goal of <100 mg/dL (LDL-C of <70 mg/dL) is considered a therapeutic option. 06/25/2022 11:3 0 AM EDT 06/25/2022 11:30 AM EDT [facility] - BLOOD DRAW Final Result [facility] [address] [address], [employer] [facility] [address] [address] * COMPREHENSIVE METABOLIC PANEL (06/25/2022 11:30 AM EDT) GLUCOSE 79 65 - 99 mg/dL [facility] Comment: Fasting reference interval UREA NITROGEN (BUN) 11 7 - 25 mg/dL [facility] CREATININE (blood) 0.66 0.50 - 0.99 mg/dL [facility] EGFR 113 > OR = 60 mL/min/1 .73m2 [facility] Comment: The eGFR is based on the CKD-EPI 2020 equation. To calculate the new eGFR from a previous Creatinine or Cystatin C result, go to https://www.kidney.org/professionals/ kdoqi/gfr%5Fcalculator BUN/CREATININE RATIO NOT APPLICABLE 6 - 22 [facility] SODIUM 138 135 - 146 mmol/L [facility] [place] [facility] POTASSIUM 4.7 3.5 - 5.3 mmol/L [facility] CHLORIDE 105 98 - 110 mmol/L [facility] CARBON DIOXIDE 25 20 - 32 mmol/L [facility] CALCIUM 9.9 8.6 - 10.2 mg/dL [facility] PROTEIN, TOTAL 7.7 6.1 - 8.1 g/dL [facility] ALBUMIN 4.6 3.6 - 5.1 g/dL [facility] GLOBULIN 3.1 1.9 - 3.7 g/dL (calc) [facility] ALBUMIN/GLOBUL IN RATIO 1.5 1.0 - 2.5 (calc) [facility] BILIRUBIN, TOTAL 0.4 0.2 - 1.2 mg/dL [facility] [facility] ALKALINE PHOSPHATASE 64 31 - 125 U/L [facility] AST 23 10 - 30 U/L [facility] ALT 14 6 - 29 U/L [facility] [facility] Blood Blood / Unknown 06/25/2022 1 1:30 AM EDT 06/25/2022 11:30 AM EDT [facility] - BLOOD DRAW Final Result Performing Organization Address City/[facility]/ZIP Co de Phone Number [facility] [address] [address], [employer] [facility] [address] [address] * HEPATITIS C ANTIBODY (01/31/2021 9:02 AM EDT) [facility] HEPATITIS C VIRUS SCREEN NEGATIVE NEGATIVE [facility] Blood Blood / Unknown 01/31/2021 9 :02 AM EDT 01/31/2021 9:38 AM EDT Narrative [facility] - 01/31/2021 2:32 PM EDT [employer], [place] [address] Software Asset Management Analyst - Mai Howard MD PT ID [id number] JEFFERSON# [id number] [facility] - BLOOD DRAW Edited Result - Final Performing Organization Address City/[facility]/ZIP Co de Phone Number [address] [address], * HIV-1 & HIV-2 ANTIBODIES (03/31/2019 9:56 AM EDT) [facility] HIV 1 AND 2 ANTIBODY SCREEN NEGATIVE NEGATIVE [facility] Comment: This assay is a 4th generation assay allowing for earlier detection of HIV infection by detecting the presence of the HIV-1 p24 antigen as well as the traditional antibodies to HIV type 1 (including group O) and type 2. Use of a 4th generation assay is the current CDC recommendation for HIV screening. Blood specimen (specimen) Blood / Unknown 03/31/2019 9:56 AM EDT 03/31/2019 10:20 AM EDT [facility] - 03/31/2019 3:42 PM EDT [employer], [place] [address] Software Asset Management Analyst - Yadira Dorado MD PT ID [id number] ORD# [id number] Donna Faulkner NP LAB - BLOOD DRAW [place] [address], from Last 3 Months or Most Recently Relevant to Health Maintenance Insurance [facility] [employer] [facility]
== END 2025-06-15 11:40 | disposition home or self-care (01) ==
LOC: HO.HSM 11:15
PROVIDERS: PCP Nurse Practitioner Family; Referring Provider Nurse Practitioner Family; Visit Provider Registered Nurse
DX: G43.009 Migraine without aura, not intractable, without status migrainosus (principal); F41.9 Anxiety disorder, unspecified
CPT/HCPCS: 99214

== ENCOUNTER → 2025-06-15 11:14 | Outpatient (BNVA) | payer OTHER, SELFPAY | PROVIDERS: PCP Nurse Practitioner Family; Referring Provider Nurse Practitioner Family; Visit Provider Registered Nurse | DX: G43.009 Migraine without aura, not intractable, without status migrainosus (principal); F41.9 Anxiety disorder, unspecified | CPT/HCPCS: 99212 ==

== ENCOUNTER 2025-10-20 11:07 | Outpatient (AMB) | payer OTHER, SELFPAY ==
--- NOTE | 2025-10-20 11:57 | MHC.OFFVIS ---
Intake Visit Reasons: 3 month follow up Accompanied by: Spouse Allergies cyclobenzaprine (From FLEXERIL) Allergy (Mild, Verified 10/20/25 12:02) ITCHING Medication List - Last Reconciled 10/20/25 by Karina Eaton CNP albuterol sulfate 90 mcg/actuation (Ventolin HFA) 2 puffs inhalation Q4-6H PRN bisacodyl (Dulcolax (bisacodyl)) 10 mg (2 x 5 mg) PO ONCE 1 day docusate sodium (Colace) 100 mg PO BID PRN fluticasone propionate 50 mcg/actuation 2 sprays intranasal DAILY hydrocortisone-pramoxine 1-1 % (Proctofoam HC) 1 appl [place] BEDTIME PRN hydroxyzine HCl 25 - 50 mg PO BEDTIME PRN lisinopril 30 mg PO DAILY methylcellulose (laxative) (Citrucel) 500 mg PO TID nortriptyline 20 mg (2 x 10 mg) PO DAILY 90 days ondansetron 4 mg PO DAILY PRN 30 days polyethylene glycol 3350 (Miralax) 17 grams PO DAILY polyethylene glycol 3350 (Miralax) 238 grams PO ONCE 1 day rizatriptan take 1 tab at onset of headache; if no relief may repeat 1 tab after at least 4 hrs; max = 2 tabs/24 hr PO 30 days sertraline 25 mg PO DAILY vancomycin 125 mg PO QID 10 days HPI Comments Details: 45-year-old woman with FABIAN using CPAP most nights and headaches for many years. She had lumbar disc surgery on 09/07/2025 at [facility]. She she went to [place] [facility] in mid-08/2025 for a bad migraine. She had few bad migraines in 09/2025 and had 2 bad migraines this week where she had to lay down. Migraines were associated with photophobia and nausea. Sumatriptan as needed was not helping anymore. Mood was okay. She was working with therapist and psychiatrist. Her psychiatrist took over the prescription for sertraline. [facility] Medical History (Updated 06/15/25 @ 11:32 by Karina Eaton CNP) Anxiety Migraine without aura Hypertension Asthma Surgical History Hx of section Hx of cholecystectomy Family History Father Depression Drug abuse Suicide Mother Anxiety Depression Sister Hemorrhoid Paternal Grandmother HTN (hypertension) Paternal Grandmother HTN (hypertension) Social History Household Members: Family Alcohol intake: never Patient Tobacco Use Status: Never used Tobacco Second Hand Smoke Exposure: No Review of Systems Const Denies chills, Denies daytime sleepiness, Reports difficulty sleeping, Denies fatigue, Denies fever(s), Denies frequent falls, Reports headache(s), Denies increased appetite, Denies poor appetite, Denies snoring, Denies weakness, Denies weight gain and Denies weight loss Eyes Denies loss of vision ENT Denies vertigo, Denies dizziness and Reports headache(s) Card Denies chest pain at rest, Denies chest pain with activity, Denies syncope, Denies leg edema and Denies palpitations Resp Denies snoring GI Denies constipation, Denies heartburn, Denies diarrhea and Denies nausea Denies urinary frequency, Denies urinary incontinence and Denies urinary urgency Musc Denies abnormal gait, Reports numbness and Reports tingling Skin/Breast Denies dry skin and Denies rash Neuro Denies abnormal gait, Denies vertigo, Denies dizziness, Denies syncope, Denies frequent falls, Reports headache(s), Denies lack of coordination, Denies loss of vision, Denies memory loss, Reports numbness, Denies restless legs, Denies seizure-like activity, Reports tingling, Denies paresthesias, Denies tremor(s) and Denies weakness Psych Reports anxiety, Denies depression, Denies auditory hallucinations, Denies memory loss, Denies visual hallucinations and Denies suicidal ideation Endo Denies fatigue and Denies palpitations Physical Exam Const Other: General Appearance:? normal, in no acute distress. Skin:? no rashes, no significant birthmarks. Heart:? S1, S2 normal, no murmurs. Lungs:? clear anteriorly and posteriorly. Extremities:? no edema. Psych:? alert, oriented, cognitive function intact, cooperative with exam. Neuro Other: Mental Status:?Normal attention, orientation, memory and affect.? Cranial Nerves:?Pupils are equal, round and reactive to light. External occular muscles are intact. Visual johnson are full. Face is symmetrical. Facial sensations are normal. Tongue is midline. Palate elevates symmetrically. Shoulder shrugging is normal. Hearing to bedside conversation is normal. Sensory Exam:?....? Coordination:?No ataxia,?no titubation.? Gait Exam: Within normal limits. Cerebellar Signs:?[id number] is okay. Extrapyramidal System:?No tremor, rigidity with normal facial expressions.? Pronator Drift:?Not present.? Involuntary Movements:?No tremors seen.? Speech:?Normal.? Assessment & Plan Assessment & Plan (1) Migraine without aura: Code(s): G43.009 - Migraine without aura, not intractable, without status migrainosus Category: Medical Qualifiers: Intractability: not intractable Status migrainosus presence: without status migrainosus Qualified Code(s): G43.009 - Migraine without aura, not intractable, without status migrainosus Plan: Sumatriptan was not helping, and medication was stopped. Continue nortriptyline 10mg 2 capsules at bedtime. Start rizatriptan 10 mg 1 tablet as needed for migraine, use/side effects reviewed. May take with 1 Aleve or Excedrin and cup of tea or coffee. Continue ondansetron 4mg 1 tablet as needed for nausea/vomiting #10 for 30 days. Follow up in 3 months or sooner as needed. (2) Anxiety: Code(s): F41.9 - Anxiety disorder, unspecified Category: Medical Plan: Sertraline was now being prescribed by psychiatrist. Plan Meds tried: topiramate, sumatriptan, propranalol, verapamil SR 120mg, depakote, amitriptyline Medications: New rizatriptan take 1 tab at onset of headache; if no relief may repeat 1 tab after at least 4 hrs; max = 2 tabs/24 hr PO 10 tabs 5RF 30 days ondansetron 4 mg PO DAILY PRN 10 tabs 5RF nausea and vomiting 30 days Discontinued sumatriptan succinate Discontinued Reason: Doctor's Order take 1 tab at onset of headache; if no relief may repeat 1 tab after at least 2 hrs; PO 10 tabs 5RF 30 days Coding Level of Care Code Est Pt Level 4 (81556) Diagnoses Migraine without aura and without status migrainosus, not intractable G43.009 Intractability: not intractable Status migrainosus presence: without status migrainosus Anxiety F41.9
== END 2025-10-20 12:15 | disposition home or self-care (01) ==
LOC: HO.HSM 11:07
PROVIDERS: PCP Nurse Practitioner Family; Visit Provider Registered Nurse
DX: G43.009 Migraine without aura, not intractable, without status migrainosus (principal); F41.9 Anxiety disorder, unspecified
CPT/HCPCS: 99214

== ENCOUNTER → 2025-10-20 11:07 | Outpatient (BNVA) | payer OTHER, SELFPAY | PROVIDERS: PCP Nurse Practitioner Family; Visit Provider Registered Nurse | DX: G43.009 Migraine without aura, not intractable, without status migrainosus (principal); F41.9 Anxiety disorder, unspecified; Z79.899 Other long term (current) drug therapy | CPT/HCPCS: 99212 ==